=== PATIENT | female | born 1980 ===

== ENCOUNTER 2016-12-31 12:44 | Emergency (ER) | payer SELFPAY ==
[2016-08-25 09:58] VITALS: BMI 35.5
--- NOTE | 2016-12-31 14:36 | OBHP ---
Datetime: 12/31/2016 14:33 IP Adm Impression: , intrauterine ; No Active Labor; Intact Membranes IP Admit Plan: Observation/Evaluation; Discharge home Admit Comment, IP Provider: 36-year-old 001 at 29 weeks gestational age presents to OB ED comp laining of decreased movement. Otherwise, patient without complaints. Patient denies any contra ctions, vaginal bleeding, leakage of fluids. Patient reports since that OB ED feeling good move ment. heart tracing reactive while at OB ED. Past medical history none Past surgical history none Medications vitamins Past obstetrical history full-term normal spontaneous vaginal delivery 1 Social history no tobacco, no alcohol, no drugs Physical exam: Refer to physical exam findings Assessment: 36-year-old 001 at 29 weeks gestational age with presenting complaint decreased moveme nt. Patient now with good movement and heart tracing reassuring. Plan: Discharge home with labor and kick count precautions. Patient will follow up with care at clinic as scheduled. Pelvic Type - PN: Adequate Extremities - PN: Normal Abdomen - PN: Normal Back - PN: Normal Breast - PN: Normal Lungs - PN: Normal Heart - PN: Normal Thyroid - PN: Normal Neurologic - PN: Normal HEENT - PN: Normal General - PN: Normal FHR - Baseline A Provider: 130s-140s IP Hx Assessment: The History has been Reviewed and is Current Vital Signs Provider: Reviewed; Within Normal Limits IP Chief Complaint: Decreased movement NICHD Variability Prov Fetus A: Moderate 6-25bpm NICHD Accel Fetus A IP Provider: 15X15 FHR Category Provider Fetus A: Category I NICHD Decel Fetus A IP Provider: None Genitourinary Exam: Normal DTRs - PN: Normal
== END 2016-12-31 23:00 | disposition home or self-care (01) ==
LOC: H.EROB2 12:44
DX: O47.03 False labor before 37 completed weeks of gestation, third trimester (principal); Z3A.29 29 weeks gestation of pregnancy

== ENCOUNTER 2017-03-15 17:06 | Emergency (ER) | payer MEDICAID, SELFPAY ==
[2016-08-25 09:58] VITALS: BMI 35.5
== END 2017-03-15 18:45 | disposition home or self-care (01) ==
LOC: H.EROB2 17:06
DX: O47.1 False labor at or after 37 completed weeks of gestation (principal); Z3A.40 40 weeks gestation of pregnancy; O48.0 Post-term pregnancy

== ENCOUNTER 2017-03-18 07:30 | Inpatient (IN) | payer MEDICAID, SELFPAY ==
--- NOTE | 2017-03-18 07:42 | OBHP ---
Datetime: 03/15/2017 18:32 IP Adm Impression: Term, intrauterine ; No Active Labor IP Admit Plan: Observation/Evaluation; Discharge home Admit Comment, IP Provider: 36 y/o @ 40.0 weeks via 8 week u/s and LMP presents with a CC of de creased movement. Pt reports normally it takes <1hr to acheive at least 10 kicks but today it h as taken longer and the kicks dont seem to feel as strong. No other complaints. Denies VB/LOF/CTX. PMD: [facility] POBHx: previous 14 years ago, uncomplicated : up to date, labs either neg or WNL. PMHx: none Meds: PNVs daily PSurgHx: IUD removal Social: denies ETOH, drugs, tobacco abuse ALL: NKDA A/P: 36 y/o @ 40.0 weeks IUP via 8wk u/s and LMP dating presenting with decreased movem ent. -FHR tracing reviewed -kick counts reviewed -case discussed and pt seen with Dr. Delphine Granda MD PGY1 @ 18:38 obh addendum: pt seen _ examined with dr granda agree with above impression and plan. edc 03/15 by lmp _ 8wk us. p: kick counts f/u in 4days at [facility] as sched'd. Pelvic Type - PN: Adequate Extremities - PN: Normal Abdomen - PN: Normal Back - PN: Normal Breast - PN: Normal Lungs - PN: Normal Heart - PN: Normal Thyroid - PN: Normal Neurologic - PN: Normal HEENT - PN: Normal General - PN: Normal FHR - Baseline A Provider: 160 Contraction Comments Provider: none Gestation - Est Wks by US: 40.0 IP Hx Assessment: The History has been Reviewed and is Current EGA AdmitDate IP: 40.0 Vital Signs Provider: Reviewed; Within Normal Limits IP Chief Complaint: Decreased movement NICHD Variability Prov Fetus A: Moderate 6-25bpm NICHD Accel Fetus A IP Provider: 15X15 FHR Category Provider Fetus A: Category I NICHD Decel Fetus A IP Provider: None Dilatation, Provider: 1 Effacement, Provider: 0 Station, Provider: -4 Genitourinary Exam: Normal DTRs - PN: Normal
[2017-03-18] MEDS: Lactated Ringer's 1,000 ML IV SCH ×4 (09:30→19:30)
--- NOTE | 2017-03-18 09:47 | OBHP ---
Datetime: 03/18/2017 09:30 IP Adm Impression: Postterm, intrauterine IP Admit Plan: Admit to unit; Initiate labor protocol Admit Comment, IP Provider: 36 y/o edc 03/15 @ 40.3 weeks via 8 week u/s and LMP presents with a CC painful ctxs At 4am were Q10min and now are q5min. Denies VB/LOF/decreased fm. current ob w/ abn 1hr and nl 3hr gtt PMD: denies POBHx: previous 14 years ago, uncomplicated : up to date, labs either neg or WNL. PMHx: none Meds: PNVs daily PSurgHx: IUD removal Social: denies ETOH, drugs, tobacco abuse ALL: NKDA I: 40.3wk ama labor p: admit for epidural per pt request FS glucose Pelvic Type - PN: Adequate Extremities - PN: Normal Abdomen - PN: Normal Back - PN: Normal Lungs - PN: Normal Heart - PN: Normal Neurologic - PN: Normal HEENT - PN: Normal General - PN: Normal EGA AdmitDate IP: 40.3 Vital Signs Provider: Reviewed IP Chief Complaint: Uterine contractions Genitourinary Exam: Normal
--- NOTE | 2017-03-18 09:51 | OBADHP ---
Datetime: 03/18/2017 09:47 Admit Comment, IP Provider: 36 y/o edc 03/15 @ 40.3 weeks via 8 week u/s and LMP presents with a CC painful ctxs At 4am were Q10min and now are q5min. Denies VB/LOF/decreased fm. current ob w/ abn 1hr and nl 3hr gtt PMD: denies POBHx: previous 14 years ago, uncomplicated : up to date, labs either neg or WNL. PMHx: none Meds: PNVs daily PSurgHx: IUD removal Social: denies ETOH, drugs, tobacco abuse ALL: NKDA I: 40.3wk ama labor p: admit for epidural per pt request FS glucose Datetime: 03/18/2017 09:30 Pelvic Type - PN: Adequate Extremities - PN: Normal Abdomen - PN: Normal Back - PN: Normal Lungs - PN: Normal Heart - PN: Normal Neurologic - PN: Normal HEENT - PN: Normal General - PN: Normal Vital Signs Provider: Reviewed IP Chief Complaint: Uterine contractions Genitourinary Exam: Normal EGA AdmitDate IP: 40.3 IP Adm Impression: Postterm, intrauterine IP Admit Plan: Admit to unit; Initiate labor protocol Datetime: 03/15/2017 18:32 Breast - PN: Normal Thyroid - PN: Normal FHR - Baseline A Provider: 160 Contraction Comments Provider: none Gestation - Est Wks by US: 40.0 IP Hx Assessment: The History has been Reviewed and is Current NICHD Variability Prov Fetus A: Moderate 6-25bpm NICHD Accel Fetus A IP Provider: 15X15 FHR Category Provider Fetus A: Category I NICHD Decel Fetus A IP Provider: None Dilatation, Provider: 1 Effacement, Provider: 0 Station, Provider: -4 DTRs - PN: Normal
[2017-03-18] MEDS ORDERED: Fentanyl/Bupivacaine HCl 250 ML EPI ONE (09:53)
[2017-03-18 09:54] LABS: BASO # 0.1 K/uL (0.0-0.2); BASO % 0.6 % (0.0-2.0); EOS # 0.1 K/uL (0.0-0.7); EOS % 0.8 % (0.0-4.0); HEMATOCRIT 35.8 % (34.0-47.0); LYMPH # 1.6 K/uL (1.0-4.3); LYMPH % 10.1 % (20.0-40.0); MEAN CELL VOLUME 88.5 fl (81.0-99.0); MEAN CORPUSCULAR HEMOGLOBIN 29.6 pg (27.0-31.0); MEAN CORPUSCULAR HGB CONC 33.4 g/dL (33.0-37.0); MEAN PLATELET VOLUME 6.9 fl (7.2-11.7); MONO # 0.4 K/uL (0.0-0.8); MONO % 2.5 % (0.0-10.0); NRBC % 0.1 % (0.0-0.0); RED CELL DISTRIBUTION WIDTH 14.9 % (11.5-14.5); WHITE BLOOD COUNT 16.3 K/uL (4.8-10.8)
[2017-03-18 11:05] VITALS: BMI 40.3
[2017-03-18 12:42] VITALS: BP 133/72; PULSE 105; RESP 18; TEMP 97.6
[2017-03-18] MEDS ORDERED: Lidocaine 1% Inj (20ml) ONE (15:49)
[2017-03-18] MEDS ORDERED: Lidocaine 2% PF (10 ml) Amp ONE (18:09)
[2017-03-18] MEDS ORDERED: Oxytocin 30 units/LR 500ML 60 U/1,000 ML BAG IV ONE (19:39)
[2017-03-18] MEDS ORDERED: Lidocaine 2% MPF (5 ml) Inj ONE (20:50)
[2017-03-18] MEDS ORDERED: Morphine 1 mg/ml preservative-free Inj(Duramorph) ONE (20:54)
[2017-03-18] MEDS ORDERED: Propofol 10 mg/ml Inj (20 ML) ONE ×4 (21:26→22:31)
[2017-03-18] MEDS ORDERED: Oxytocin 30 units/LR 500ML 30 U/500 ML BAG IV ONE (21:39)
[2017-03-18] MEDS ORDERED: Midazolam 2 MG/2 ML VIAL ONE (21:48)
[2017-03-18] MEDS ORDERED: DiphenhydrAMINE 50 mg/ml Inj IVP PRN (21:58)
[2017-03-18] MEDS ORDERED: Naloxone 0.4 mg/ml Inj (Adult) IVP PRN (21:58)
[2017-03-18] MEDS ORDERED: Oxycodone/Acetaminophen 5/325 mg Tab PO PRN (23:03)
[2017-03-19] MEDS ORDERED: Oxytocin 30 units/LR 500ML 30 U/500 ML BAG IV SCH (00:15)
[2017-03-19] MEDS ORDERED: Lactated Ringer's 1,000 ML IV SCH (02:08)
[2017-03-19 07:19] LABS: BASO # 0.1 K/uL (0.0-0.2); BASO % 0.4 % (0.0-2.0); EOS % 0.1 % (0.0-4.0); HEMATOCRIT 27.7 % (34.0-47.0); LYMPH # 1.6 K/uL (1.0-4.3); LYMPH % 8.6 % (20.0-40.0); MEAN CELL VOLUME 90.5 fl (81.0-99.0); MEAN CORPUSCULAR HEMOGLOBIN 29.2 pg (27.0-31.0); MEAN CORPUSCULAR HGB CONC 32.3 g/dL (33.0-37.0); MEAN PLATELET VOLUME 7.3 fl (7.2-11.7); MONO # 0.8 K/uL (0.0-0.8); NEUT # 16.5 K/uL (1.8-7.0); NEUT % 86.9 % (50.0-75.0); PLATELET COUNT 236 K/uL (130-400)
--- NOTE | 2017-03-19 08:54 | OBDS ---
DELIVERY PERSONNEL Delivery Doctor: Josey Beckford MD Embossing Press Operator Apprentice: Tiffany CARRASCO/ Radha CARRASCO Anesthesiologist: Dr. lara Resident: Dr. Granda MATERNAL INFORMATION Delivery Anesthesia: Epidural Medications in Delivery: Pitocin Estimated Blood Loss (ml): 900 Placenta Cultured: No Maternal Complications: None Provider Comments: op note preop note: maternal request for CD postop note: same procedure:LFTCD surgeon: geeta louis 1st asst: noam 2nd asst: diane anesth: epidural-- dr. lara ebl: 900cc no complications pt to nbn neon to nbn findings: female 7lb9oz 9_9 path: none LABOR SUMMARY EDC: 03/15/2017 00:00 No. Babies in Womb: 1 Attempted: No Labor Anesthesia: Epidural LABOR INFORMATION Reason for Induction: Not Applicable Onset of Labor: 03/18/2017 04:00 Oxytocin: Augmentation Group B Beta Strep: Negative Antibiotics # of Doses: 1 Antibiotics Time of Last Dose: Ancef 3 gram IVPB at 2054 Steroids Given: None Reason Steroids Not Administered: Not Applicable MEMBRANES Membranes Rupture Method: Spontaneous Rupture of Membranes: 03/18/2017 14:45 Length of Rupture (hrs): 6.88 Amniotic Fluid Color: Clear Amniotic Fluid Amount: Small Amniotic Fluid Odor: Normal STAGES OF LABOR Stage 3 hrs: 0 Stage 3 min: 1 Total Time in Labor hrs: 17 Total Time in Labor min: 39 CSECTION DELIVERY Primary Indication: Arrest of Descent Other Primary Indication: Maternal request Secondary Indication: Arrest of Labor and Dilatation CSection Urgency: Elective CSection Incidence: Primary Labor: Labor CSection Incision: Lower Uterine Transverse CSection Incision Other: n/a BABY A INFORMATION Infant Delivery Date/Time: 03/18/2017 21:38 Method of Delivery: Born in Route : No : N/A Forceps: N/A Vacuum Extraction: N/A Shoulder Dystocia : No SHOULDER DYSTOCIA BABY A Delivery Date/Time: 03/18/2017 21:38 PRESENTATION/POSITION BABY A Presentation: Cephalic Cephalic Presentation: Vertex Breech Presentation: N/A PLACENTA INFORMATION BABY A Placenta Delivery Time : 03/18/2017 21:39 Placenta Method of Delivery: Spontaneous Placenta Status: Delivered SCORES BABY A Heart Rate 1 min: >100 bpm Resp Effort 1 min: Good Cry Reflex Irritability 1 min: Cough or Sneeze or Pulls Away Muscle Tone 1 min: Active Motion Color 1 min: Body [place], Extremities Blue Resuscitation Effort 1 min: Tactile Stimulation SCORE 1 MIN: 9 Heart Rate 5 min: >100 bpm Resp Effort 5 min: Good Cry Reflex Irritability 5 min: Cough or Sneeze or Pulls Away Muscle Tone 5 min: Active Motion Color 5 min: Body [place], Extremities Blue Resuscitation Effort 5 min: N/A SCORE 5 MIN: 9 INFANT INFORMATION BABY A Gestational Age at Delivery: 40.3 Gestational Status: Term Infant Outcome : Liveborn Infant Condition : Stable Infant Sex: Female IDENTIFICATION/MEDS BABY A ID Band Number: [id number] ID Band Location: Left Leg; Left Arm Vitamin K Given : Not Given Erythromycin Given: Not Given WEIGHT/LENGTH BABY A Infant Birthweight (gms): 3520 Weight (lb): 7 Weight (oz): 12 CORD INFORMATION BABY A No. Cord Vessels: 3 Nuchal Cord : N/A Nuchal Cord Other: n Cord pH Baby Arterial: n/a Cord pH Baby Venous: n/a Cord Blood Taken: Yes Suction: Mouth; Nose ASSESSMENT BABY A Complications: None Physical Findings at Delivery: Within Normal Limits Respirations: Appears Normal Receivable Executive/ALS Called : No Care By: Vaibhav Jolly RN Transferred To: Nursery
[2017-03-19] MEDS ORDERED: Multivitamin With Minerals Tab PO SCH (09:00)
[2017-03-19] MEDS: Oxycodone/Acetaminophen 5/325 mg Tab PO PRN ×3 (09:07→21:25)
[2017-03-19] MEDS: Multivitamin With Minerals Tab PO SCH (09:08)
[2017-03-19 09:21] LABS: NEUTROPHIL 86 % (42-75); TOTAL CELLS COUNTED 100
[2017-03-20] MEDS: Oxycodone/Acetaminophen 5/325 mg Tab PO PRN ×4 (02:20→19:29)
--- NOTE | 2017-03-20 06:17 | OBPPN ---
Datetime: 03/19/2017 05:37 PP Pain Prov: Within normal limits PP Nausea Prov: Denies PP Flatus Prov: Yes PP BM Prov: No PP Breasts Prov: Normal PP Heart Prov: Normal PP Lungs Prov: Normal PP Abdomen/Uterus Prov: Normal PP Lochia Prov: Normal PP Vulva/Perineum Prov: Normal PP CVA Tenderness Prov: Normal PP Extremities Prov: Normal PP C/S Incision Prov: Normal PP Progress Prov: Normal PP Comments Phys Exam Prov: abd: hypoactive BS, soft, moderate tendereness diffusely, ND. No guardin g/rigidity. Unable to palpate fundus secondary to truncal obesity/pt discomfort. : nicholson in place, good urine output, urine is anny in color and clear. Incision: bandage overlying incision is clean and dry. EXT: SCDs attached, NT calves, homans neg b/l PP Impression Prov: Normal progression PP Plan Prov: Continue present management PP Progress Note Prov: pt seen and examined at bedside. No acute events overnight. Pt reports modera te abdominal pain controlled w/ pain meds. No ambulation yet, SCDs attached. Has not began feeding y et as baby is still in nursery. Reports no bowel movement yet but is passing flatus. Tolerating CLD b ut reports feeling hungry. Denies fevers, chills, n/v/d, CP/SOB, lightheadedness and calf pain. A/P: 36 y/o s/p on 03/18/2017 @ 21:38 afebrile, tolerating pain w/ medication, doin g well on POD#1. -continue current management -DC Nicholson 12 hours post-op -advance diet as tolerated -d/c SCDs, ambulation with caution -f/u pCBC -Percocet 5/325 mg 1 tabs PO Q6h prn for mod/severe pain. -Ibuprofen 600 mg 1 tab Q6h PO prn for mild pain. -Sennosides for constipation -Encourage breast feeding. -Anticipate DC 03/21 Jose Granda MD PGY1 @ 5:44am OB Hospitalist note. On rounds at 22:00pm, I saw and examined this pt. Agree with PGY1 note MAHDACIA O Vital Signs Provider PP: Reviewed; Within Normal Limits
[2017-03-20] MEDS: Multivitamin With Minerals Tab PO SCH (09:31)
--- NOTE | 2017-03-20 13:25 | OBPPN ---
Datetime: 03/20/2017 06:20 PP Pain Prov: Within normal limits PP Nausea Prov: Denies PP Flatus Prov: Yes PP BM Prov: No PP Breasts Prov: Normal PP Heart Prov: Normal PP Lungs Prov: Normal PP Abdomen/Uterus Prov: Normal PP Lochia Prov: Normal PP Vulva/Perineum Prov: Normal PP CVA Tenderness Prov: Normal PP Extremities Prov: Normal PP C/S Incision Prov: Normal PP Progress Prov: Normal PP Comments Phys Exam Prov: abd: +BS, soft, mild tenderness diffusely. ND, no guarding/rigidity. Fun dus firm at level of umbilicus incision: clean, dry, intact PP Impression Prov: Normal progression PP Plan Prov: Continue present management PP Progress Note Prov: pt seen and examined at bedside. No acute events overnight. Pt reports modera te abdominal pain controlled w/ pain meds. OOB/ambulating w/o difficulty. Breast/bottle feeding. Repo rts no bowel movement yet but is passing flatus. Tolerating PO intake w/o difficulty. Denies fevers, chills, n/v/d, CP/SOB, lightheadedness and calf pain. A/P: 36 y/o s/p on 03/18/2017 @ 21:38 afebrile, tolerating pain w/ medication, doin g well on POD#2. -continue current management -Ferrous Sulfate 325mg QD due to fatigue and >3 drop in Hb -Percocet 5/325 mg 1 tabs PO Q6h prn for mod/severe pain. -Ibuprofen 600 mg 1 tab Q6h PO prn for mild pain. -Sennosides for constipation -OOB/ambulation with caution -Encouraged breast feeding. -Anticipate DC 03/21 Jose Granda MD PGY1 @ 6:23am OB Hospitalist note. On rounds this morning, I saw and examined this pt. Agree with PGY1 note ESTHER NDO Vital Signs Provider PP: Reviewed; Within Normal Limits
[2017-03-20] MEDS ORDERED: Oxycodone/Acetaminophen 5/325 mg Tab PO PRN (19:44)
[2017-03-21] MEDS: Oxycodone/Acetaminophen 5/325 mg Tab PO PRN (04:05)
[2017-03-21] MEDS: Multivitamin With Minerals Tab PO SCH (09:19)
--- NOTE | 2017-03-21 18:58 | OBPPN ---
Datetime: 03/21/2017 09:01 PP Pain Prov: Within normal limits PP Nausea Prov: Denies PP Flatus Prov: Yes PP BM Prov: Yes PP Breasts Prov: Normal PP Heart Prov: Normal PP Lungs Prov: Normal PP Abdomen/Uterus Prov: Normal PP Lochia Prov: Normal PP Extremities Prov: Normal PP C/S Incision Prov: Normal PP Progress Prov: Normal PP Comments Phys Exam Prov: Wound appears clean dry and intact Fundus is firm PP Impression Prov: Normal progression PP Plan Prov: Continue present management; Discharge PP Progress Note Prov: Patient seen and examined at bedside. No acute events overnight. Pt reports m oderate abdominal pain controlled w/ pain meds. OOB/ambulating w/o difficulty. Breast/bottle feeding. PAtient has passed gas and has had a bowl movment. Tolerating PO intake w/o difficulty. Denies fever s, chills, n/v/d, CP/SOB, lightheadedness and calf pain. A/P: 36 y/o s/p on 03/18/2017 @ 21:38 afebrile, tolerating pain w/ medication, doin g well on POD#3 - Stable for discharge home. -continue current management -Ferrous Sulfate 325mg QD due to fatigue and >3 drop in Hb -Percocet 5/325 mg 1 tabs PO Q6h prn for mod/severe pain. -Ibuprofen 600 mg 1 tab Q6h PO prn for mild pain. -Sennosides for constipation -OOB/ambulation with caution -Encouraged breast feeding. Judi Luna PGY1 IP PP Procedures: None Vital Signs Provider PP: Reviewed; Within Normal Limits
--- NOTE | 2017-03-21 18:58 | OBDCSUM ---
Datetime: 03/21/2017 09:08 Discharged to, Provider: Home Follow up at, Provider: [facility] Disch Instr Activity: Normal activity Disch Instr Diet: Regular Discharge Instructions, Provider: Routine instructions given Discharge Diagnosis, Provider: Term Delivered Discharge Time: 03/21/2017 13:05 Follow up in weeks, Provider: 1 week Disch Referrals: None Disch Activity Restrictions: No exercising; No lifting; Minimize walking; Minimize stair-climbing; N o sexual activity; Nothing in vagina - [place], tampons, douche Discharge Comment, Provider: 36 YO had a C- Section Delivered baby girl on 03/18/17 @ 18:29 3520gm , : 9,9, Patient doing well, stable for discharge. Prescription given for pain. Encourage - PNV 1 tab PO once daily - Mild pain Ibuprofen 600 mg 1 tab PO Q6 PRN - Mod pain PRN: Percocet 5/325 mg 1 tab Q6 PO Ambulate w/ caution, nothing in vagina, no heavy lifting, if excessive bleeding or fever without relief from Tylenol go to ED - Advised to F/U with Obgyn in one week for a wound check and 2-3 days for with pediatrici an or PCP. Judi Luna M.D. Therapeutic Radiologist PGY1 Contraception after Delivery: Not Planning to Use
== END 2017-03-21 13:05 | disposition home or self-care (01) | DRG 371 ==
LOC: H.EROB2 07:30 → H.L&D 07:48 → H.EROB2 09:37 → H.L&D 09:38 → H.OB/GYN 03-19 01:30
PROVIDERS: ADMIT Obstetrics & Gynecology; ATTEND Obstetrics & Gynecology
PROC: 10D00Z1 Extraction of Products of Conception, Low, Open Approach (ICD-10-PCS; principal; 2017-03-18)
PROC: 4A1HXCZ Monitoring of Products of Conception, Cardiac Rate, External Approach (ICD-10-PCS; 2017-03-18)
DX: O62.1 Secondary uterine inertia (principal); K59.00 Constipation, unspecified; Z37.0 Single live birth; O48.0 Post-term pregnancy; Z3A.40 40 weeks gestation of pregnancy